=== PATIENT | female | born 1950 | race Caucasian/White ===

== ENCOUNTER → 2017-03-03 | Outpatient (CLI) | payer OTHER ==
[~2017-03-03] MED LIST: ALEN10 PO; ANAS1 PO; ASPI81EC PO; ATEN25 PO; CENTRUM SILVER1 EAC3; CHOL10002; Calcium + Vita1 EACH; DIGO.25 PO; DIGOX125 MCG; IRON; Ibuprofen Ib200 MG; LEVSOD150 PO; LISI5 PO; LORA10 PO; METO25; Prinivil10 MG; SIMV40; Super B Comple150 MG; TIROSINT75 MCG; TOCO1000 PO
== END ==
LOC: LAB SHORT 12:18 → PLD 12:18
DX: D48.5 Neoplasm of uncertain behavior of skin (principal)
CPT/HCPCS: 88305

== ENCOUNTER 2017-06-26 07:01 | Day surgery (SDC) | payer OTHER ==
[~2017-06-26] VITALS: Ht 154.9 cm; Wt 53.2 kg
[~2017-06-26 07:01] MED LIST changes: -CHOL10002; -Calcium + Vita1 EACH; -Super B Comple150 MG; -TOCO1000 PO
[2017-06-26] MEDS ORDERED: CHOL10002 (07:53)
[2017-06-26] MEDS ORDERED: Super B Comple150 MG (07:55)
[2017-06-26] MEDS ORDERED: TOCO1000 PO (07:55)
[2017-06-26] MEDS ORDERED: Calcium + Vita1 EACH (07:55)
== END 2017-06-26 09:45 | disposition home or self-care (01) ==
LOC: ORSCSDS 07:01
PROVIDERS: Surgery
PROC: 0DBN8ZX Excision of Sigmoid Colon, Via Natural or Artificial Opening Endoscopic, Diagnostic (ICD-10-PCS; principal; 2017-06-26 08:30)
PROC: 0DBK8ZX Excision of Ascending Colon, Via Natural or Artificial Opening Endoscopic, Diagnostic (ICD-10-PCS; principal; 2017-06-26 08:30)
PROC: 0DBL8ZX Excision of Transverse Colon, Via Natural or Artificial Opening Endoscopic, Diagnostic (ICD-10-PCS; principal; 2017-06-26 08:30)
DX: Z12.11 Encounter for screening for malignant neoplasm of colon (principal); D12.2 Benign neoplasm of ascending colon; D12.3 Benign neoplasm of transverse colon; K63.5 Polyp of colon; K57.30 Diverticulosis of large intestine without perforation or abscess without bleeding; Z86.010 Personal history of colon polyps; I48.91 Unspecified atrial fibrillation; E03.9 Hypothyroidism, unspecified; E78.5 Hyperlipidemia, unspecified; F17.210 Nicotine dependence, cigarettes, uncomplicated; Z79.82 Long term (current) use of aspirin; Z79.899 Other long term (current) drug therapy
CPT/HCPCS: 88305; J0330; J1980; J2405; J7120

== ENCOUNTER → 2018-06-12 | Outpatient (CLI) | payer OTHER ==
[~2018-06-12] MED LIST changes: +CHOL10002; +Calcium + Vita1 EACH; +Super B Comple150 MG; +TOCO1000 PO
[2018-06-12 18:26] LABS: Alanine Aminotransfer (ALT/SGP 27 U/L (12-78); Albumin, Blood 4.1 g/dL (3.4-5.0); Albumin/Globulin Ratio 1.5 (0.8-1.8); Alk Phos 68 U/L (50-136); Anion Gap 8 mmol/L (6-16); Aspartate Aminotrans (AST/SGOT 31 U/L (12-37); Bilirubin, Total 0.5 mg/dL (0.1-1.0); Blood Urea Nitrogen 12 mg/dL (8-24); Bun/Creatinine Ratio 21.5 (12.0-20.0); CO2, Blood 27 mmol/L (21-32); Chloride, Blood 103 mmol/L (98-108); Creatinine, Blood 0.56 mg/dL (0.40-1.00); Globulin, Blood 2.8 g/dL (2.2-4.0); Glomerular Filtration Rate >60 (60-); Glucose, Blood 93 mg/dL (70-99); Potassium, Blood 4.2 mmol/L (3.5-5.5); Sodium, Blood 138 mmol/L (136-145); Total Protein, Blood 6.9 g/dL (6.4-8.2)
== END | disposition home or self-care (01) ==
LOC: LAB 17:52 → LAB SHORT 17:52
PROVIDERS: Internal Medicine Hematology & Oncology
DX: D51.8 Other vitamin B12 deficiency anemias (principal); C50.912 Malignant neoplasm of unspecified site of left female breast
CPT/HCPCS: 80053; 82607; 82746

== ENCOUNTER → 2018-09-07 | Outpatient (CLI) | payer OTHER | END | disposition home or self-care (01) | LOC: LAB SHORT 14:14 → PLD 14:14 | DX: D04.5 Carcinoma in situ of skin of trunk (principal); L98.499 Non-pressure chronic ulcer of skin of other sites with unspecified severity; I78.1 Nevus, non-neoplastic | CPT/HCPCS: 88305 ==

== ENCOUNTER → 2019-11-17 | Outpatient (CLI) | payer OTHER | END | disposition home or self-care (01) | LOC: LAB SHORT 14:38 → PLD 14:38 | DX: C44.519 Basal cell carcinoma of skin of other part of trunk (principal) | CPT/HCPCS: 88305 ==

== ENCOUNTER → 2020-04-19 | Outpatient (CLI) | payer OTHER | END | disposition home or self-care (01) | LOC: PLD 15:13 → LAB SHORT 15:13 | DX: D48.5 Neoplasm of uncertain behavior of skin (principal) | CPT/HCPCS: 88305 ==

== ENCOUNTER → 2020-05-17 | Outpatient (CLI) | payer OTHER | LOC: PLD 12:45 → LAB SHORT 12:45 | DX: C44.722 Squamous cell carcinoma of skin of right lower limb, including hip (principal) | CPT/HCPCS: 88305 ==

== ENCOUNTER → 2020-10-17 | Outpatient (CLI) | payer OTHER | END | disposition home or self-care (01) | LOC: LAB SHORT 12:49 → LAB 12:49 | DX: C44.329 Squamous cell carcinoma of skin of other parts of face (principal); L57.0 Actinic keratosis | CPT/HCPCS: 88305 ==

== ENCOUNTER → 2022-04-25 | Outpatient (CLI) | payer OTHER ==
[~2022-04-25] MED LIST changes: +SIMV80
== END | disposition home or self-care (01) ==
LOC: PLD 12:31 → LAB SHORT 12:31
DX: D04.5 Carcinoma in situ of skin of trunk (principal)
CPT/HCPCS: 88305

== ENCOUNTER 2022-06-06 06:23 | Inpatient (IN) | payer OTHER ==
[~2022-06-06] VITALS: Ht 152.4 cm; Wt 58.7 kg
[2022-06-06] VITALS (41 sets, daily range): BP systolic 70–127; BP diastolic 39–74
[~2022-06-06 06:23] MED LIST changes: -CHOL10002; -METO25; +METO25 PO; -SIMV80; +SIMVASTATIN PO; -TIROSINT75 MCG; +TIROSINT75 MCG PO; +VITAMIN D310 MC4 PO
--- NOTE | 2022-06-06 07:19 | NUR ---
Ambulatory in Day Surgery History, Chart, Medications and Allergies reviewed before start of procedure. Pre-Op teaching done. Pt verbalizes understanding.
--- NOTE | 2022-06-06 19:56 | NUR ---
EPIDURAL ASSESSMENT EPIDURAL SENSATION ASSESSMENT DONE AT 1804, PT REPORTED FULL SENSATION BUT STATES LEGS FEEL HEAVY. PT WAS ALSO HYPOTENSIVE, ANESTHESIA NOTIFIED AND ORDERS OBTAINED TO PAUSE EPIDURAL AND CHANGE RATE UPON RESUMING. WILL CTM
--- NOTE | 2022-06-06 20:01 | NUR ---
SHIFT SUMMARY POD0 SIGMOID RESECTION c MASS REMOVAL, A/OX4, PATIENT HAS HAD SOFT BP SINCE ARRIVAL FROM PACU, JUST AFTER 1800 HER BP WAS LOWER WITH HER SYSTOLIC IN THE LOW 70'S. SURGEON NOTIFIED, ANESTHESIA NOTIFIED AND REPORTED THEY WOULD COME SEE PT. PER ANESTHESIA THE EPIDURAL WAS PAUSED FOR 45 MINUTES FROM 184 TO 1929 AND RESUMED AT A LOWER RATE OF 4. 200ML BOLUS OF MAINTANENCE FLUIDS GIVEN PER VERBAL ORDER WELL, PT APPEARS TO BE STABLE AND ALERT T/O. PT REPORTING FULL SENSATION THOUGH SHE STATES HER LEGS FEEL HEAVY, REDUCED COLD SENSATION. TOLERATING SOME PO FLUIDS. NO OTHER EVENTS THIS SHIFT, CALL LIGHT IN REACH, REPORT GIVEN TO NOC RN.
[2022-06-07] VITALS (21 sets, daily range): BP systolic 91–127; BP diastolic 48–68
--- NOTE | 2022-06-07 00:04 | NUR ---
UNABLE TO OBTAIN SX ON TEVIN DRAIN. REMOVED TEVIN DRESSING, CLEANED WITH NS, AND GAUZE,MINIMAL AMOUNT OF SERSANGUINEOUS DRAINAGE UNDER TEVIN. REDRESSED AND SEAL AND SX ESTABLISHED. DRESSING IS CURRENTLY C/D/I.
--- NOTE | 2022-06-07 03:56 | NUR ---
SUMMARY POD1 SIGMOID COLLECTOMY. MIDLINE WITH TEVIN THATS C/D/I, AND COMPRESSED. DRESSING WAS CHANGED THIS SHIFT DUE TO LOSS OF SEAL AND SX. PATIENT SPB IS WNL, SATS REMAINED ABOVE 90 ON 2L NC, CONT. PULSE OX IN PLACE. PATIENT HR PER PUMP INSTALLER SR IN THE 80S. IV FLUIDS INFUSING @75/HR. PATIENT IS PAINFUL IN HER LOWER BACK AND HAS ABD PAIN AND PRESSURE. EPIDURAL IS IN PLACE AND INSERTION SITE IS WNL. REPOSITIONED FREQUENTLY T/O NIGHT. SALCEDO IS PATENT AND DRAINING YELLOW CLEAR URINE. CIWA ASSESSMENTS IN PLACE, PATIENT IS MEDICATED PER EMR. CURRENTLY PATIENT IS RESTING AND APPEARS COMFORTABLE. PATIENT IS ALERT HAS SOME MOMENTS OF FORGETFULNESS. CALL LIGHT IS IN REACH AND WILL CONT TO Q1H CHECKS AND TREATMENT. WILL REPORT TO DAY RN.
[2022-06-07 05:10] LABS: BASOPHILS ABSOLUTE AUTO 0.03 K/mm3 (0.00-0.23); BASOPHILS PERCENT AUTO 0 % (0-2); EOSINOPHILS ABSOLUTE AUTO 0.04 K/mm3 (0.00-0.68); EOSINOPHILS PERCENT AUTO 0 % (0-6); Hematocrit 39.4 % (33.0-51.0); Hemoglobin 13.3 g/dL (11.5-16.0); IMMATURE GRAN ABSOLUTE AUTO 0.07 K/mm3 (0.00-0.10); IMMATURE GRAN PERCENT AUTO 0 % (0-1); LYMPHOCYTES ABSOLUTE AUTO 2.11 K/mm3 (0.84-5.20); LYMPHOCYTES PERCENT AUTO 13 % (21-46); MONOCYTES ABSOLUTE AUTO 2.12 K/mm3 (0.16-1.47); MONOCYTES PERCENT AUTO 13 % (4-13); Mean Corpuscular HGB Conc 33.8 g/dL (31.5-36.5); Mean Corpuscular Volume 95 fL (80-100); Mean Platelet Volume 9.2 fL (9.1-12.4); NEUTROPHILS ABSOLUTE AUTO 11.49 K/mm3 (1.96-9.15); NEUTROPHILS PERCENT AUTO 72 % (41-73); Platelet Count 308 K/mm3 (150-400); RDW Standard Deviation 49.1 fL (35.1-46.3); Red Blood Cell Count 4.16 M/mm3 (3.80-5.20); White Blood Cell Count 15.86 K/mm3 (4.00-11.30)
[2022-06-07 05:20] LABS: Bun/Creatinine Ratio 19.4 (12.0-20.0); Calcium, Blood 8.1 mg/dL (8.5-10.1); Creatinine, Blood 0.41 mg/dL (0.40-1.00); Potassium, Blood 3.3 mmol/L (3.5-5.5)
--- NOTE | 2022-06-07 15:47 | NUR ---
SHIFT SUMMARY POD 1 SIGMOID COLECTOMY. TEVIN IN TACT WITH SCANT SANGUINEOUS FLUID. EPIDURAL SITE CLEAR FROM S/S INFECTION. EPIDURAL LINE CLEARED OF AIR BUBBLES. SBP IN 90S. O2 SATS ABOVE 94% ON 2L 02 VIA NC. PT REPOERTS PAIN IN LOWER BACK. SALCEDO IS DRAINING CLEAR YELLOW LIQUID. PATIENT IS ALERT WITH CALL LIGHT WITHIN REACH.
--- NOTE | 2022-06-07 22:41 | NUR ---
PT WITH DECREASED AIR MOVEMENT T/O LUNG NDIAYE.LS COURSE WITH SCATTERED SQEAKS,RHONCHI,COARSE CRACKLES 02 INITIALLY 3 L N/C WITH DESATS 87-88% REQUIRING 6 L N/C RAISING SATS TO 89-90.PT GROGGY AND MILDLY SLOW TO REPOND,BUT REPORTED UNCHANGED AND ANSWERS APPROPRIATELY TO SITUATION.PT HAS EPIDURAL.DENIES CP OR SOB.DENIES LUNG DZ ALTHOUGH PRIOR MEDICAL RECORDS APPEAR PT HAS EMPHYSEMA.I CALLED DR JON MCALLISTER ADVISED OF ABOVE.ORDERS RECEIVED FOR AM CXR AND RT CARE.
[2022-06-08] VITALS (9 sets, daily range): BP systolic 96–130; BP diastolic 59–79
--- NOTE | 2022-06-08 02:42 | NUR ---
PT ON CPAP WITH ADJUSTMENTS BRINGING SATS TO 93%.PT SLEEPS OFF AND ON TONIGHT.
--- NOTE | 2022-06-08 10:00 | NUR ---
EPIDURAL ASSESSMENT EPIDURAL APPEARS TO BE MANAGING PAIN WELL. DEMAND BUTTON WITHING REACH. EPIDURAL TUBING SECURE. SITE FREE FROM BRUISING, BLEEDING, OR INFLAMMATION. DRESSING C/D/I.
--- NOTE | 2022-06-08 11:00 | NUR ---
SHIFT ASSESSMENT THIS RN AGREES WITH SHIFT ASSESSMENT DOCUMENTATION BY ABELINO TURK STUDENT NURSE.
--- NOTE | 2022-06-08 12:10 | NUR ---
PT WAS OFFERED TO GET OOB WITH LUNCH. PT DECLINED THIS AND STATED THAT SHE WILL DO IT THIS AFTERNOON. SHE ALSO HAS CONCERN ABOUT DIZZINESS WITH AMBULATION AND TRANSFERS.
--- NOTE | 2022-06-08 18:40 | NUR ---
SHIFT SUMMARY PT POD2 FROM SIGMOID COLECTOMY, TEVIN IN PLACE DRESSING C/D/I. EPIDURAL IN PLACE, MANAGING PAIN WELL. DERMATOMES ASSESSMENT PERFORMED Q4 HOURS. PT OOB TO CHAIR, STANDBY ASSIST. EXPIRATORY RONCHI THROUGHOUT LUNGS, PT HAS BEEN COUGHING AND USING IS. PT ON 3L NC, SATS AVERAGING IN THE 90'S. IV INFILTRATED, NEW IV INSERTED ON LEFT WRIST. DRESSING C/D/I. SALCEDO DRAINING CLEAR YELLOW URINE. CALL LIGHT WITHIN REACH.
[2022-06-09 03:29] VITALS: BP 148/83
--- NOTE | 2022-06-09 04:13 | NUR ---
SHIFT SUMMARY A/O X4 THROUGHOUT SHIFT. TEVIN DRESSING ON ABDOMEN C/D/I. EPIDERAL ADEQUATELY MANAGING PAIN. PT OOB TO CHAIR THIS SHIFT. NO REPORT OF NAUSEA/VOMITING. BOWEL TONES ACTIVE IN ALL 4 QUADRANTS. ON 4L NC OR BIPAP THROUGHOUT SHIFT. PLEASANT AND COOPERATIVE W/ CARE. WILL CONTINUE TO MONITOR AND REPORT TO ONCOMING RN.
[2022-06-09 04:25] LABS: BASOPHILS ABSOLUTE AUTO 0.05 K/mm3 (0.00-0.23); BASOPHILS PERCENT AUTO 0 % (0-2); EOSINOPHILS ABSOLUTE AUTO 0.18 K/mm3 (0.00-0.68); EOSINOPHILS PERCENT AUTO 1 % (0-6); Hematocrit 40.2 % (33.0-51.0); Hemoglobin 13.6 g/dL (11.5-16.0); IMMATURE GRAN ABSOLUTE AUTO 0.04 K/mm3 (0.00-0.10); IMMATURE GRAN PERCENT AUTO 0 % (0-1); LYMPHOCYTES ABSOLUTE AUTO 2.13 K/mm3 (0.84-5.20); LYMPHOCYTES PERCENT AUTO 17 % (21-46); MONOCYTES ABSOLUTE AUTO 1.26 K/mm3 (0.16-1.47); MONOCYTES PERCENT AUTO 10 % (4-13); Mean Corpuscular HGB 31.8 pg (26.0-34.0); Mean Corpuscular HGB Conc 33.8 g/dL (31.5-36.5); Mean Corpuscular Volume 94 fL (80-100); Mean Platelet Volume 9.3 fL (9.1-12.4); NEUTROPHILS ABSOLUTE AUTO 8.77 K/mm3 (1.96-9.15); NEUTROPHILS PERCENT AUTO 71 % (41-73); Platelet Count 294 K/mm3 (150-400); RDW Standard Deviation 48.5 fL (35.1-46.3); Red Blood Cell Count 4.28 M/mm3 (3.80-5.20); White Blood Cell Count 12.43 K/mm3 (4.00-11.30)
[2022-06-09 04:49] LABS: Anion Gap Unable to Calculate mmol/L (6-16); Blood Urea Nitrogen 6 mg/dL (8-24); Bun/Creatinine Ratio 12.6 (12.0-20.0); CO2, Blood 30 mmol/L (21-32); Calcium, Blood 8.6 mg/dL (8.5-10.1); Chloride, Blood 110 mmol/L (98-108); Creatinine, Blood 0.48 mg/dL (0.40-1.00); Glomerular Filtration Rate 102 (60-); Glucose, Blood 95 mg/dL (70-99); Potassium, Blood 3.3 mmol/L (3.5-5.5); Sodium, Blood 139 mmol/L (136-145)
[2022-06-09 07:24] VITALS: BP 120/60
[2022-06-09 13:54] VITALS: BP 119/73
--- NOTE | 2022-06-09 17:30 | NUR ---
SHIFT SUMMARY PT POD #3 FOR SIGMOID COLECTOMY. TEVIN DRESSING TO MIDLINE CDI. PT ALSO HAS LLL PNEUMONIA. LUNGS ARE VERY COARSE AND PT IS COUGHING UP PINK TINGED SPUTUM. EPIDURAL DC'D AND PAIN HAS BEEN CONTROLLED WITH ORAL PAIN MEDICATION. ON 4 LITERS O2 VIA NC AT THIS TIME. UP TO THE CHAIR FOR MEALS WITH 1-2 ASSIST. TOLERATING FULL LIQUIDS WELL. SOME GAS BUT NO BM. VSS.
[2022-06-09 20:11] VITALS: BP 142/70
--- NOTE | 2022-06-10 04:51 | NUR ---
epidural was dcd today.balance of epidural med was 125 ml and i wasted it with earnestine garcía rn.
[2022-06-10 05:07] VITALS: BP 119/71
[2022-06-10 07:10] VITALS: BP 127/68
--- NOTE | 2022-06-10 08:16 | NUR ---
SUMMARY PT SLEPT MOST OF NIGHT. HAD SOFT LOSSE BM TONIGHT.
[2022-06-10 14:22] VITALS: BP 126/72
--- NOTE | 2022-06-10 15:48 | NUR ---
REMOVED PT SALCEDO. PT USED RESTROOM. URINE AND BOWEL MOVEMENT IN TOILET. PT AMBULATED AROUND UNIT WITH 3L 02. TOLERATED WELL. PT UPRIGHT IN CHAIR, WATCHING TV WITH CALL LIGHT IN REACH.
--- NOTE | 2022-06-10 17:46 | NUR ---
SHIFT SUMARY PT A&OX4. POD 4 SIGMOID RESECT. PT STATES SHE IS "MOTIVATED TO GO HOME." PT AMBULATED WITH WALKER TWICE THROUGHOUT THE SHIFT. PT ATE 2 OF HER MEALS IN THE CHAIR. SALCEDO REMOVED IN THE AFTERNOON. PT HAD SMALL BM AND PASSED GAS AFTER HER AFTERNOON WALK. DR. HARRISON TOLD THE PATIENT THE MASS REMOVED FROM HER GI WAS NON-CANCEROUS. PT BACK IN BED, RESTING COMFORTABLE WITH CALL LIGHT IN REACH. WILL REPORT TO NOC NURSE.
[2022-06-10 19:22] VITALS: BP 110/88
[2022-06-11 04:43] VITALS: BP 124/74
--- NOTE | 2022-06-11 06:11 | NUR ---
SHIFT SUMMARY NO ACUTE CHANGES NOTED THROUGH THE NIGHT , PT CONTINUES TO PASS FLATUS, DENIES NAUSEA, BM X2, VOIDING WNL, VSS, O2 VIA NC @ 2.5 L, PT STRONGLY ENC TO USE INCENTIVE SPIROMETER, PT WILL TRY TO BREATHE SHALLOW AND NOT COUGH, ABD SPLINTING ENC, PT WILL EXPEL MODERATE AMOUNTS OF SPUTUM WHEN STRONGLY ENC TO USE I/S WHILE STANDING BEDSIDE, EDUCATION PROVIDED, DRSG C/D/I, MINIMAL PAIN MNGD PER EMAR, CALL LIGHT IN REACH, WCTM & REPORT TO ONCOMING RN.
--- NOTE | 2022-06-11 07:23 | NUR ---
ASSUMED CARE OF PT FROM NOC NURSE. PT RESTING IN BED COMFORTABLY WITH RISE AND FALL OF CHEST. PT ON 2.5L 02 NC. CALL LIGHT WITHIN REACH.
[2022-06-11 07:30] VITALS: BP 105/64
[2022-06-11 07:59] LABS: BASOPHILS ABSOLUTE AUTO 0.06 K/mm3 (0.00-0.23); BASOPHILS PERCENT AUTO 0 % (0-2); EOSINOPHILS ABSOLUTE AUTO 0.28 K/mm3 (0.00-0.68); EOSINOPHILS PERCENT AUTO 2 % (0-6); Hematocrit 40.3 % (33.0-51.0); Hemoglobin 13.5 g/dL (11.5-16.0); IMMATURE GRAN ABSOLUTE AUTO 0.05 K/mm3 (0.00-0.10); IMMATURE GRAN PERCENT AUTO 0 % (0-1); LYMPHOCYTES ABSOLUTE AUTO 1.62 K/mm3 (0.84-5.20); LYMPHOCYTES PERCENT AUTO 12 % (21-46); MONOCYTES ABSOLUTE AUTO 1.33 K/mm3 (0.16-1.47); MONOCYTES PERCENT AUTO 10 % (4-13); Mean Corpuscular HGB 31.3 pg (26.0-34.0); Mean Corpuscular HGB Conc 33.5 g/dL (31.5-36.5); Mean Corpuscular Volume 93 fL (80-100); Mean Platelet Volume 8.7 fL (9.1-12.4); NEUTROPHILS ABSOLUTE AUTO 10.71 K/mm3 (1.96-9.15); NEUTROPHILS PERCENT AUTO 76 % (41-73); Platelet Count 327 K/mm3 (150-400); RDW Coefficient Variation 13.5 % (11.7-14.2); RDW Standard Deviation 46.7 fL (35.1-46.3); Red Blood Cell Count 4.32 M/mm3 (3.80-5.20); White Blood Cell Count 14.05 K/mm3 (4.00-11.30)
[2022-06-11 08:17] LABS: Bun/Creatinine Ratio 20.9 (12.0-20.0); Calcium, Blood 8.6 mg/dL (8.5-10.1); Creatinine, Blood 0.48 mg/dL (0.40-1.00); Potassium, Blood 3.9 mmol/L (3.5-5.5)
--- NOTE | 2022-06-11 10:35 | NUR ---
THERAPY DOG JACOB IN TO VISIT WITH PT
[2022-06-11 14:19] VITALS: BP 110/68
--- NOTE | 2022-06-11 16:53 | NUR ---
SHIFT SUMMARY PT A&OX4. POD 5 SIGMOID RESECTION COLON. PT IS AMBULATING WELL WITH WALKER. SHE IS ABLE TO GET TO AND FROM THE BATHROOM HERSELF WITH THE WALKER, LONG AT HER TELE BOX IS HOOKED TO THE WALKER. PT BEGAN SHIFT ON OXYGEN, SHE WAS TAKEN OFF BEFORE LUNCH. HER O2 SATS HAVE STAYED ABOVE 95% ON ROOM AIR. MONITOR WILL ALERT SLIGHT DESATURATIONS WHEN IN BATHROOM OR ADJUSTING POSITION IN BED. PT USES INCENTIVE SPIROMETER OFTEN. PT SHOWERED TODAY. PT DOES NOT HAVE IV, IT WAS REMOVED THE PREVIOUS SHIFT DUE TO PAIN AND SWELLING. NO IV ACESS NEEDED THIS SHIFT. PT WATCHING TV IN BED. CALL LIGHT WITHIN REACH. WILL REPORT TO NOC SHIFT.
[2022-06-11 19:24] VITALS: BP 110/71
--- NOTE | 2022-06-12 03:50 | NUR ---
SHIFT SUMMARY NO ACUTE CHANGES OVERNIGHT, PT HAS RESTED T/O THE NIGHT. POD 5 BOWEL RESECTION, PT IS TOLERATING HER DIET. NO COMPLAINTS OF N/V OR ABD PAIN. PT WAS WEANED OFF O2 DURING THE DAY AND WAS ABLE TO MAINTAIN HER SATS ABOVE 90%, HOWEVER, AT SHIFT CHANGE PT SATS WERE IN THE UPPER 80'S. RT PLACED 1L O2 VIA NC AND SHE WAS ABLE TO MAINTAIN HER SATS IN IN THE 90'S UNTIL SHE FELL ASLEEP. WHEN SLEEPING SHE WOULD DESAT INTO THE 80'S. PT O2 HAS BEEN INCREASED TO 4L AND SHE IS MAINTAING HER SATS IN THE LOW 90'S. MIDLINE DRESSING C/D/I, GREEN LIGHT FLASHING ON TEVIN. BED IN LOWEST POSITION, CALL LIGHT WITHIN REACH.
[2022-06-12 04:31] VITALS: BP 117/62
[2022-06-12 07:46] VITALS: BP 128/78
[2022-06-12 14:37] VITALS: BP 112/66
--- NOTE | 2022-06-12 16:36 | NUR ---
SUMMARY: PT IS POD6 JAILYN COLECTOMY, A/O, VSS. PT LUNG SOUNDS CLEAR TONIGHT AND SP02 96% ON 1L NC. PLAN IS FOR SLEEP STUDY TONIGHT AND HOME O2 EVAL IN MORNING. PT REPORTS HAVING INCREASED SPUTUM THAT IS DIFFICULT TO COUGH UP IN THE MORNINGS. PT HAS USED FLUTTER VALVE WELL TODAY AND REPORTS LESS SPUTUM TONIGHT. PT TOOK WALK IN CORTES TODAY AND WAS 92% ON RA WHILE WALKING. SURGICAL SITE IS WNL AND TEVIN COMPRESSED. PAIN MANAGED AND TELE DC'D TONIGHT. PT TOLERATING DIET, PASSING GAS, NO N/V. DR. VILLALTA IN ROOM AT 1630. PLAN IS TO REMOVED TEVIN DRESSING TOMORROW AND POSSIBLE DC HOME.
[2022-06-12 19:24] VITALS: BP 112/76
[2022-06-13 04:38] VITALS: BP 128/78
--- NOTE | 2022-06-13 04:38 | NUR ---
SHIFT SUMMARY PT HAS RESTED COMFORTABLY T/O THE NIGHT. SLEEP STUDY DONE OVERNIGHT, PT ON 2L O2. PT USES FLUTTER VALVE WHILE AWAKE AND IS COUGHING TO CLEAR SECREATIONS PRN. LUNGS DIMISHED T/O. TEVIN DRESSING C/D/I. PT REPORTS LOOSE STOOLS, COLACE HELD. PLAN IS FOR HOME O2 EVALUATION TODAY AND THEN DISCHARGE. NO ACUTE CHANGES OVERNIGHT. BED IN LOWEST POSITION, CALL LIGHT WITHIN REACH.
[2022-06-13 07:03] VITALS: BP 114/79
[2022-06-13 16:24] VITALS: BP 118/75
--- NOTE | 2022-06-13 18:16 | NUR ---
AMBULATED IN CORTES WITH OXYGEN AND STANDBY ASSIST, PT STATES HAS GENERALIZED WEAKNESS. BIOX MAINTAINING GREATER THAN 90 PERCENT ON 2 LITERS OXYGEN. PT USING FLUTTER VALVE INDEPENDENTLY EVERY 1-2 HOURS. REGINE SMALL AMOUNTS OF REGULATR DIET. PT REPORTS ABD PAIN ADEQUATELY CONTROLLED. TEVIN DRESSING IN PLACE. PT HAD OXYGEN TANK DELIVERED TO ROOM. PT DOES NOT HAVE HOME OXYGEN IN PLACE SHE MUST BE HOME TO ACCEPT DELIVERY. PT ANTICIPATES DISCHARGE TO HOME IN AM
[2022-06-13 19:38] VITALS: BP 122/71
[2022-06-14 03:39] VITALS: BP 100/49
--- NOTE | 2022-06-14 04:54 | NUR ---
SHIFT SUMMARY: PODx7 SIGMOID COLECTOMY. MIDLINE TEVIN REMAINS IN PLACE WITH DRIED DRAINAGE THAT HAS REMAINED UNCHANGED. TOLERATING PO INTAKE. PT O2% REMAINED ABOVE 92% ON 2L O2 VIA NC. ENCOURAGED IS USE. PT ABLE TO AMBULATE TO THE MULITPLE TIMES T/O THE NIGHT WITH MINIMAL ASSISTANCE AND A FWW. PLANS TO DC HOME TODAY WITH OXYGEN.
[2022-06-14 07:23] VITALS: BP 113/71
[2022-06-14] MEDS ORDERED: DOCU100 PO (10:47)
[2022-06-14] MEDS ORDERED: Norco 5-325 Ta1 EACH PO (10:48)
--- NOTE | 2022-06-14 12:16 | NUR ---
home oxygen cannister given at discharge and patient reports not feeling oxygen flow. resp therapist sally soriano checked oxygen system and adjusted for patient, reports patient may need a continuous set up as is not triggereing oxygen with her normal inspiration. spoke with vaibhav at [facility] who will contact manager labor delivery regarding need for more sensitive regulator or possibly cont set up. pt with biox 95% on home oxygen pt cheri small amounts of regular diet, up in room to bathroom with walker. dr morgan removed esdras dressing and qasim in place. no redness or drainage. pt in agreement with plan to discharge home and follow up with dr morgan next week
== END 2022-06-14 12:21 | disposition home or self-care (01) | DRG 330 ==
LOC: SURS 06:23 → PRE IP 08:00 → SURS 12:18
PROVIDERS: ADMIT Surgery
PROC: 0DTN0ZZ Resection of Sigmoid Colon, Open Approach (ICD-10-PCS; principal; 2022-06-06 08:00)
DX: D12.5 Benign neoplasm of sigmoid colon (principal); D68.59 Other primary thrombophilia; I50.42 Chronic combined systolic (congestive) and diastolic (congestive) heart failure; J43.1 Panlobular emphysema; I11.0 Hypertensive heart disease with heart failure; I25.10 Atherosclerotic heart disease of native coronary artery without angina pectoris; I48.91 Unspecified atrial fibrillation; E78.5 Hyperlipidemia, unspecified; E03.9 Hypothyroidism, unspecified; M19.90 Unspecified osteoarthritis, unspecified site; M41.9 Scoliosis, unspecified; F10.20 Alcohol dependence, uncomplicated; R91.1 Solitary pulmonary nodule; F17.210 Nicotine dependence, cigarettes, uncomplicated; L30.4 Erythema intertrigo; M47.816 Spondylosis without myelopathy or radiculopathy, lumbar region; M85.80 Other specified disorders of bone density and structure, unspecified site; Z90.722 Acquired absence of ovaries, bilateral; Z90.710 Acquired absence of both cervix and uterus; Z99.81 Dependence on supplemental oxygen; Z90.49 Acquired absence of other specified parts of digestive tract; Z98.890 Other specified postprocedural states; Z88.8 Allergy status to other drugs, medicaments and biological substances; Z79.82 Long term (current) use of aspirin; Z79.899 Other long term (current) drug therapy; Z86.010 Personal history of colon polyps; Z85.828 Personal history of other malignant neoplasm of skin; Z85.3 Personal history of malignant neoplasm of breast
CPT/HCPCS: 36415; 71045; 80048; 85025; 88307; 94660; 94664; 94761; 94762; A9270; J0295; J1100; J1200; J1650; J2250; J2270; J2370; J2405; J2704; J3010; J3411; J7050; J7120; V2790

== ENCOUNTER → 2022-07-03 | Outpatient (CLI) | payer OTHER ==
[~2022-07-03] MED LIST changes: +DOCU100 PO; +Norco 5-325 Ta1 EACH PO
[2022-07-03 16:47] LABS: BASOPHILS ABSOLUTE AUTO 0.05 K/mm3 (0.00-0.23); BASOPHILS PERCENT AUTO 0 % (0-2); EOSINOPHILS ABSOLUTE AUTO 0.21 K/mm3 (0.00-0.68); EOSINOPHILS PERCENT AUTO 2 % (0-6); Hematocrit 47.5 % (33.0-51.0); Hemoglobin 15.1 g/dL (11.5-16.0); IMMATURE GRAN ABSOLUTE AUTO 0.04 K/mm3 (0.00-0.10); IMMATURE GRAN PERCENT AUTO 0 % (0-1); LYMPHOCYTES ABSOLUTE AUTO 2.64 K/mm3 (0.84-5.20); LYMPHOCYTES PERCENT AUTO 23 % (21-46); MONOCYTES ABSOLUTE AUTO 0.96 K/mm3 (0.16-1.47); MONOCYTES PERCENT AUTO 9 % (4-13); Mean Corpuscular HGB 30.9 pg (26.0-34.0); Mean Corpuscular HGB Conc 31.8 g/dL (31.5-36.5); Mean Corpuscular Volume 97 fL (80-100); Mean Platelet Volume 10.1 fL (9.1-12.4); NEUTROPHILS ABSOLUTE AUTO 7.37 K/mm3 (1.96-9.15); NEUTROPHILS PERCENT AUTO 65 % (41-73); Platelet Count 343 K/mm3 (150-400); RDW Coefficient Variation 13.8 % (11.7-14.2); RDW Standard Deviation 49.3 fL (35.1-46.3); Red Blood Cell Count 4.88 M/mm3 (3.80-5.20); White Blood Cell Count 11.27 K/mm3 (4.00-11.30)
[2022-07-03 17:21] LABS: Albumin, Blood 3.7 g/dL (3.4-5.0); Albumin/Globulin Ratio 1.1 (0.8-1.8); Bilirubin, Total 0.5 mg/dL (0.1-1.0); Bun/Creatinine Ratio 24.7 (12.0-20.0); Calcium, Blood 9.1 mg/dL (8.5-10.1); Creatinine, Blood 0.57 mg/dL (0.40-1.00); Globulin, Blood 3.5 g/dL (2.2-4.0); Potassium, Blood 5.1 mmol/L (3.5-5.5); Thyroid Stimulating Hormone 0.914 uIU/mL (0.360-4.800); Total Protein, Blood 7.2 g/dL (6.4-8.2)
== END | disposition home or self-care (01) ==
LOC: LAB SHORT 10:33 → LAB 10:33
PROVIDERS: Family Medicine
DX: E03.9 Hypothyroidism, unspecified (principal); I10 Essential (primary) hypertension
CPT/HCPCS: 80053; 84443; 85025

== ENCOUNTER → 2022-07-09 | Outpatient (CLI) | payer OTHER | LOC: LAB 12:00 → LAB SHORT 12:00 | DX: R30.0 Dysuria (principal) | CPT/HCPCS: 87077; 87086; 87186 ==

== ENCOUNTER → 2022-09-09 | Outpatient (CLI) | payer OTHER ==
[2022-09-10 08:03] LABS: Candida species (DNA Probe) Negative (NEGATIVE); G. vaginalis (DNA Probe) Negative (NEGATIVE); T. vaginalis (DNA Probe) Negative (NEGATIVE)
== END ==
LOC: LAB 15:59 → LAB SHORT 15:59
PROVIDERS: Family Medicine
DX: N76.0 Acute vaginitis (principal)
CPT/HCPCS: 87480; 87510; 87660

== ENCOUNTER 2022-11-06 12:14 | Day surgery (SDC) | payer OTHER ==
[~2022-11-06] VITALS: Wt 61.9 kg
--- NOTE | 2022-11-06 13:33 | NUR ---
11/06/22 1333 Natividad Clayton 10ML OF LIDOCAINE 1% MIXED 1:1 WITH 10ML OF ROPIVACAINE 0.5% TO MAKE LOCAL FOR INJECTION AT OPSITE BY DR VILLALTA.
--- NOTE | 2022-11-06 14:08 | NUR ---
11/06/22 1408 ROLANDO STALLINGS DENIES PAIN AND NAUSEA. WARM BLANKETS ON PT.
[2022-11-06 14:17] VITALS: BP 121/60
--- NOTE | 2022-11-06 14:18 | NUR ---
11/06/22 1418 ROLANDO STALLINGS HERE NOW FOR MEDIPORT PLACEMENT
== END 2022-11-06 15:15 | disposition home or self-care (01) ==
LOC: ORSCSDS 12:14
PROVIDERS: Surgery
PROC: 0JH60WZ Insertion of Totally Implantable Vascular Access Device into Chest Subcutaneous Tissue and Fascia, Open Approach (ICD-10-PCS; principal; 2022-11-06 13:30)
DX: C34.11 Malignant neoplasm of upper lobe, right bronchus or lung (principal); I48.91 Unspecified atrial fibrillation; J43.9 Emphysema, unspecified; I10 Essential (primary) hypertension; E78.5 Hyperlipidemia, unspecified; E03.9 Hypothyroidism, unspecified; F17.210 Nicotine dependence, cigarettes, uncomplicated; Z85.828 Personal history of other malignant neoplasm of skin; Z85.3 Personal history of malignant neoplasm of breast; Z85.118 Personal history of other malignant neoplasm of bronchus and lung; Z79.899 Other long term (current) drug therapy; Z79.82 Long term (current) use of aspirin
CPT/HCPCS: 77001; C1788; J0690; J1642; J2001; J2704; J2795; J3010; J7120

== ENCOUNTER 2023-04-06 00:18 | Inpatient (IN) | payer OTHER ==
[~2023-04-06] VITALS: Ht 152.4 cm; Wt 61.0 kg
[~2023-04-06 00:18] MED LIST changes: +ALLERCLEAR10 MG PO; -ASPI81EC PO; +Aspir 8181 MG PO; -LORA10 PO; -METO25 PO; +METO50ER PO
[2023-04-06 01:14] LABS: BASOPHILS ABSOLUTE AUTO 0.02 K/mm3 (0.00-0.23); BASOPHILS PERCENT AUTO 0 % (0-2); EOSINOPHILS ABSOLUTE AUTO 0.03 K/mm3 (0.00-0.68); EOSINOPHILS PERCENT AUTO 0 % (0-6); Hematocrit 45.4 % (33.0-51.0); Hemoglobin 15.7 g/dL (11.5-16.0); IMMATURE GRAN ABSOLUTE AUTO 0.05 K/mm3 (0.00-0.10); IMMATURE GRAN PERCENT AUTO 0 % (0-1); LYMPHOCYTES ABSOLUTE AUTO 0.86 K/mm3 (0.84-5.20); LYMPHOCYTES PERCENT AUTO 7 % (21-46); MONOCYTES ABSOLUTE AUTO 0.67 K/mm3 (0.16-1.47); MONOCYTES PERCENT AUTO 6 % (4-13); Mean Corpuscular HGB 32.8 pg (26.0-34.0); Mean Corpuscular HGB Conc 34.6 g/dL (31.5-36.5); Mean Corpuscular Volume 95 fL (80-100); Mean Platelet Volume 8.5 fL (9.1-12.4); NEUTROPHILS ABSOLUTE AUTO 10.53 K/mm3 (1.96-9.15); NEUTROPHILS PERCENT AUTO 87 % (41-73); Platelet Count 259 K/mm3 (150-400); RDW Coefficient Variation 12.5 % (11.7-14.2); RDW Standard Deviation 44.3 fL (35.1-46.3); Red Blood Cell Count 4.79 M/mm3 (3.80-5.20); White Blood Cell Count 12.16 K/mm3 (4.00-11.30)
[2023-04-06 01:33] LABS: Albumin, Blood 3.7 g/dL (3.4-5.0); Albumin/Globulin Ratio 1.1 (0.8-1.8); Bilirubin, Total 0.5 mg/dL (0.1-1.0); Bun/Creatinine Ratio 29.5 (12.0-20.0); Calcium, Blood 9.8 mg/dL (8.5-10.1); Creatinine, Blood 0.51 mg/dL (0.40-1.00); Globulin, Blood 3.5 g/dL (2.2-4.0); Potassium, Blood 4.1 mmol/L (3.5-5.5); Total Protein, Blood 7.2 g/dL (6.4-8.2)
[2023-04-06] MEDS ORDERED: Ondansetron HCl 2 MG / ML 2ML Vial IV ONE (02:10)
[2023-04-06] MEDS ORDERED: NS 1,000 ML IV SCH ×2 (02:10→05:00)
[2023-04-06] MEDS ORDERED: FentaNYL Citrate 50 MCG/ML 2 ML Injection IV ONE (02:10)
[2023-04-06 02:49] LABS: Magnesium, Blood 1.9 mg/dL (1.6-2.4)
[2023-04-06 03:18] LABS: Source, Urine Straight Cath
[2023-04-06 03:26] LABS: Bilirubin, Urine Neg (Neg); Blood, Urine 1+ (Neg); Glucose Qualitative, Urine Neg (Neg); Ketones, Urine 2+ (Neg); Leukocyte Esterase, Urine Neg (Neg); Nitrite, Urine Neg (Neg); Protein, Urine 1+ (Neg); Specific Gravity, Urine 1.005 (1.003-1.022); Urobilinogen, Urine NORM (Normal)
[2023-04-06 04:02] LABS: Appearance, Urine Clear (Clear); Color, Urine Yellow (P-Yellow)
[2023-04-06 04:03] LABS: Influenza A, PCR NEGATIVE (NEGATIVE); Influenza B, PCR NEGATIVE (NEGATIVE); Resp Syncytial Virus, PCR NEGATIVE (NEGATIVE); SARS-Cov-2 (COVID-19) PCR, MMC NEGATIVE (NEGATIVE)
[2023-04-06 04:04] LABS: Amorphous Light (0-Heavy); Bacteria Few /hpf; Red Blood Cells, Urine 0-2 /hpf (0-2); Squamous Epithelial Cells Rare /hpf (Few); White Blood Cells, Urine 0-2 /hpf (0-5)
[2023-04-06] MEDS ORDERED: FLU VACC QS2023-24(6MOS UP)/PF 60 MCG/0.5 ML SYRINGE IM ONE (04:45)
[2023-04-06] MEDS ORDERED: FentaNYL Citrate 50 MCG/ML 2 ML Injection IV PRN (04:45)
[2023-04-06] MEDS ORDERED: Ondansetron HCl 2 MG / ML 2ML Vial IV PRN (04:50)
[2023-04-06] MEDS ORDERED: Simvastatin40 MG PO (05:13)
[2023-04-06 06:04] VITALS: BP 127/78
--- NOTE | 2023-04-06 07:53 | NUR ---
SHIFT SUMMARY PT AARIVED TO FLOOR AT 0555 FROM ER VIA WHEELCHAIR. SBA TO BED. A&OX4, VSS ON RA. DENIES PAIN. ORIENTED TO ROOM AND CALL LIGHT. NPO, MOUTH SWABS GIVEN. SBA TO BSC, VOIDING CLEAR YELLOW URINE. NO BM. BED IN LOWEST POSITION, CALL LIGHT WITHIN REACH. BED ALARM SET FOR PT'S SAFETY.
[2023-04-06 08:22] VITALS: BP 130/69
[2023-04-06] MEDS ORDERED: Heparin Sodium,Porcine 5,000 UNIT/0.5 ML SDV SC SCH (09:00)
[2023-04-06] MEDS ORDERED: Levothyroxine Sodium 100 MCG Vial IV SCH (09:00)
[2023-04-06] MEDS ORDERED: Nicotine 14 MG PATCH TOP SCH (09:00)
[2023-04-06 15:46] VITALS: BP 111/77
--- NOTE | 2023-04-06 16:58 | NUR ---
PATIENT A/OX4, UP WALKING IN HALLS INDEPENDENTLY THIS SHIFT. REPORTS INTERMIITENT MILD NAUSEA AND ABDOMINAL CRAMPING. PATIENT HAD A SMALL BM THIS AFTERNOON. REMAINS NPO, IV FLUIDS INFUSING. NO NEW CONCERNS THIS SHIFT.
[2023-04-06 20:08] VITALS: BP 120/62
[2023-04-07] MEDS ORDERED: Acetaminophen 325 MG TABLET PO PRN (01:40)
[2023-04-07 04:42] LABS: BASOPHILS ABSOLUTE AUTO 0.02 K/mm3 (0.00-0.23); BASOPHILS PERCENT AUTO 0 % (0-2); EOSINOPHILS ABSOLUTE AUTO 0.07 K/mm3 (0.00-0.68); EOSINOPHILS PERCENT AUTO 1 % (0-6); Hematocrit 39.8 % (33.0-51.0); Hemoglobin 13.3 g/dL (11.5-16.0); IMMATURE GRAN ABSOLUTE AUTO 0.03 K/mm3 (0.00-0.10); IMMATURE GRAN PERCENT AUTO 0 % (0-1); LYMPHOCYTES ABSOLUTE AUTO 1.34 K/mm3 (0.84-5.20); LYMPHOCYTES PERCENT AUTO 19 % (21-46); MONOCYTES PERCENT AUTO 8 % (4-13); Mean Corpuscular HGB 32.4 pg (26.0-34.0); Mean Corpuscular HGB Conc 33.4 g/dL (31.5-36.5); Mean Corpuscular Volume 97 fL (80-100); Mean Platelet Volume 8.6 fL (9.1-12.4); NEUTROPHILS ABSOLUTE AUTO 5.08 K/mm3 (1.96-9.15); NEUTROPHILS PERCENT AUTO 71 % (41-73); Platelet Count 221 K/mm3 (150-400); RDW Coefficient Variation 12.9 % (11.7-14.2); RDW Standard Deviation 46.6 fL (35.1-46.3); Red Blood Cell Count 4.11 M/mm3 (3.80-5.20); White Blood Cell Count 7.14 K/mm3 (4.00-11.30)
[2023-04-07 04:47] VITALS: BP 139/74
[2023-04-07 05:07] LABS: Bun/Creatinine Ratio 21.6 (12.0-20.0); Creatinine, Blood 0.46 mg/dL (0.40-1.00); Potassium, Blood 3.6 mmol/L (3.5-5.5)
[2023-04-07 05:08] LABS: Calcium, Blood 7.8 mg/dL (8.5-10.1)
[2023-04-07 07:14] VITALS: BP 136/67
--- NOTE | 2023-04-07 07:37 | NUR ---
SHIFT SUMMARY PT IS A&OX4, VSS ON RA. PT C/O HAVING A BERRY, PROBABLY RELATED TO NO CAFFEINE INTAKE. PRN TYLENOL GIVEN WITH GOOD RESULTS. TOLERATING A CLEAR LIQUID DIET, NO N/V. UP INDEPENDENTLY IN ROOM. VOIDING IN BR, HAD SMALL HARD PELLET BM THIS SHIFT. BED IN LOWEST POSITION, CALL LIGHT WITHIN REACH.
[2023-04-07] MEDS ORDERED: Docusate Sodium 100 MG Cap PO PRN (13:55)
[2023-04-07 15:41] VITALS: BP 118/78
--- NOTE | 2023-04-07 18:37 | NUR ---
PATIENT FEELING BETTER TODAY. UP AMBULATING IN HALLS. TOLERATING A FULL LIQUID DIET. SEVERAL SMALL FORMED BOWEL MOVEMENTS TODAY AND PASSING GAS. DENIES ANY NAUSEA. TYLENOL GIVEN X1 TODAY FOR CHRONIC BACK PAIN. NO NEW CONCERNS THIS SHIFT.
[2023-04-07 19:29] VITALS: BP 123/69
[2023-04-07] MEDS ORDERED: Atorvastatin 10 MG Tab PO SCH (21:00)
[2023-04-08 04:50] VITALS: BP 140/73
[2023-04-08 05:40] LABS: BASOPHILS ABSOLUTE AUTO 0.03 K/mm3 (0.00-0.23); BASOPHILS PERCENT AUTO 0 % (0-2); EOSINOPHILS ABSOLUTE AUTO 0.15 K/mm3 (0.00-0.68); EOSINOPHILS PERCENT AUTO 2 % (0-6); Hematocrit 41.8 % (33.0-51.0); IMMATURE GRAN ABSOLUTE AUTO 0.03 K/mm3 (0.00-0.10); IMMATURE GRAN PERCENT AUTO 0 % (0-1); LYMPHOCYTES ABSOLUTE AUTO 1.43 K/mm3 (0.84-5.20); LYMPHOCYTES PERCENT AUTO 20 % (21-46); MONOCYTES ABSOLUTE AUTO 0.74 K/mm3 (0.16-1.47); MONOCYTES PERCENT AUTO 10 % (4-13); Mean Corpuscular HGB 32.2 pg (26.0-34.0); Mean Corpuscular HGB Conc 33.5 g/dL (31.5-36.5); Mean Corpuscular Volume 96 fL (80-100); Mean Platelet Volume 9.3 fL (9.1-12.4); NEUTROPHILS ABSOLUTE AUTO 4.74 K/mm3 (1.96-9.15); NEUTROPHILS PERCENT AUTO 67 % (41-73); Platelet Count 241 K/mm3 (150-400); RDW Standard Deviation 46.5 fL (35.1-46.3); Red Blood Cell Count 4.35 M/mm3 (3.80-5.20); White Blood Cell Count 7.12 K/mm3 (4.00-11.30)
[2023-04-08] MEDS ORDERED: Levothyroxine Sodium 0.075 MG Tab PO SCH (06:00)
[2023-04-08 06:02] LABS: Bun/Creatinine Ratio 17.4 (12.0-20.0); Calcium, Blood 9.1 mg/dL (8.5-10.1); Creatinine, Blood 0.46 mg/dL (0.40-1.00); Potassium, Blood 3.6 mmol/L (3.5-5.5)
[2023-04-08 07:13] VITALS: BP 145/73
--- NOTE | 2023-04-08 07:39 | NUR ---
SHIFT SUMMARY PT HAD A GOOD NIGHT. NO ACUTE CHANGES. TOLERATING A FULL LIQUID DIET, NO N/V. NO C/O PAIN. UP INDEPENDENTLY TO BR. BED IN LOWEST POSITION, CALL LIGHT WITHIN REACH.
[2023-04-08] MEDS ORDERED: Cholecalciferol 1000 Unit Tablet (=25MCG) PO SCH (09:00)
[2023-04-08] MEDS ORDERED: Aspirin 81 MG TabEC PO SCH (09:00)
[2023-04-08] MEDS ORDERED: Metoprolol Succinate 50 MG TABCR PO SCH (09:00)
[2023-04-08] MEDS ORDERED: Loratadine 10 MG Tab PO SCH (09:00)
[2023-04-08 15:20] VITALS: BP 112/65
[2023-04-08] MEDS ORDERED: Nicoderm Cq1 EAC1 TOP (16:59)
--- NOTE | 2023-04-08 17:43 | NUR ---
PATIENT D/C'D TO HOME WITH FAMILY. D/C INSTRUCTIONS AND EDUCATION DISCUSSED WITH PATIENT AND COPY PROVIDED. PATIENT TO FOLLOW UP WITH PCP NEXT WEEK. PATIENT DENIES ANY QUESTIONS OR CONCERNS.
== END 2023-04-08 17:39 | disposition home or self-care (01) | DRG 389 ==
LOC: ER 00:18 → SURS 04:43 → MEDS 04:43
PROVIDERS: Emergency Medicine; Family Medicine; Internal Medicine; Student in an Organized Health Care Education/Training Program; ADMIT Internal Medicine
DX: K56.600 Partial intestinal obstruction, unspecified as to cause (principal); C34.90 Malignant neoplasm of unspecified part of unspecified bronchus or lung; E87.1 Hypo-osmolality and hyponatremia; I50.42 Chronic combined systolic (congestive) and diastolic (congestive) heart failure; E03.9 Hypothyroidism, unspecified; E78.5 Hyperlipidemia, unspecified; E55.9 Vitamin D deficiency, unspecified; I25.10 Atherosclerotic heart disease of native coronary artery without angina pectoris; I11.0 Hypertensive heart disease with heart failure; F17.200 Nicotine dependence, unspecified, uncomplicated; M81.0 Age-related osteoporosis without current pathological fracture; I48.91 Unspecified atrial fibrillation; J43.9 Emphysema, unspecified; D72.829 Elevated white blood cell count, unspecified; Z88.6 Allergy status to analgesic agent; Z88.8 Allergy status to other drugs, medicaments and biological substances; Z92.21 Personal history of antineoplastic chemotherapy; Z92.3 Personal history of irradiation; Z79.890 Hormone replacement therapy; Z79.82 Long term (current) use of aspirin; Z85.3 Personal history of malignant neoplasm of breast; Z11.52 Encounter for screening for COVID-19; Z85.828 Personal history of other malignant neoplasm of skin; Z90.49 Acquired absence of other specified parts of digestive tract; Z71.6 Tobacco abuse counseling
CPT/HCPCS: 0241U; 36415; 51701; 71045; 74177; 80048; 80053; 81001; 83605; 83690; 83735; 84484; 85025; 93005; 93010; 94762; 96361-59; 96374-59; 96375-59; 99285-25; A9270; J1644; J2405; J3010; J7030; Q9967